=== PATIENT | male | born 1965 | race African-American/Black ===

== ENCOUNTER 2017-02-09 01:38 | Emergency (ER) | payer SELFPAY ==
[2014-03-13 02:07] VITALS: BMI 22.0
[~2017-02-09 01:38] MED LIST: CARDIZEM CD180 MG PO; DILANTIN100 MG PO
[2017-02-09 02:52] LABS: APPEARANCE CLEAR (CLEAR); COLOR YELLOW (YELLOW); GLUCOSE NEGATIVE (NEGATIVE); KETONE NEGATIVE (NEGATIVE); LEUKOCYTE ESTERASE NEGATIVE (NEGATIVE); NITRITE NEGATIVE (NEGATIVE); PROTEIN NEGATIVE (NEGATIVE); SPECIFIC GRAVITY 1.005 (1.005-1.020)
[2017-02-09 02:53] LABS: BILIRUBIN NEGATIVE (NEGATIVE); UROBILINOGEN NORMAL (NORMAL)
[2017-02-09 03:00] LABS: UDS - AMPHET NEGATIVE QUAL (NEGATIVE); UDS - BARB NEGATIVE QUAL (NEGATIVE); UDS - BENZO NEGATIVE QUAL (NEGATIVE); UDS - COCAINE NEGATIVE QUAL (NEGATIVE); UDS - METH NEGATIVE QUAL (NEGATIVE); UDS - OPIATE NEGATIVE QUAL (NEGATIVE); UDS - PCP NEGATIVE QUAL (NEGATIVE); UDS - THC NEGATIVE QUAL (NEGATIVE)
== END 2017-02-09 03:40 | disposition home or self-care (01) ==
LOC: D.ER 01:38
PROVIDERS: Family Medicine
DX: M51.36 Other intervertebral disc degeneration, lumbar region (principal); M54.5 Low back pain; M54.30 Sciatica, unspecified side; F17.200 Nicotine dependence, unspecified, uncomplicated

== ENCOUNTER 2017-02-11 04:39 | Emergency (ER) | payer SELFPAY ==
[2014-03-13 02:07] VITALS: BMI 22.0
== END 2017-02-11 05:23 | disposition home or self-care (01) ==
LOC: D.ER 04:39
DX: M54.5 Low back pain (principal); M51.36 Other intervertebral disc degeneration, lumbar region

== ENCOUNTER 2017-02-17 03:32 | Emergency (ER) | payer SELFPAY ==
[2014-03-13 02:07] VITALS: BMI 22.0
[2017-02-17 05:02] LABS: BASOPHILS 0.1 % (0-2); EOSINOPHILS 0 % (0-7); HEMATOCRIT 35.2 % (42.0-54.0); HEMOGLOBIN 11.2 g/dL (13.5-17.5); IMMATURE GRANULOCYTES 0.1 % (0-5); LYMPHOCYTES 3.3 % (15-50); MCH 29.2 pg (26.0-34.0); MCHC 31.8 g/dL (31.0-37.0); MCV 91.9 fL (80.0-100.0); MEAN PLATELET VOLUME 9.5 fL (7.4-10.4); MONOCYTES 2.5 % (2-11); RBC 3.83 10x6/uL (4.20-6.10); RDW 13.1 % (11.5-14.5); WBC 8.4 10x3/uL (4.8-10.8)
[2017-02-17 05:05] LABS: PLATELET COUNT 159 10x3/uL (130-400)
[2017-02-17 05:17] LABS: ALBUMIN 3.8 g/dL (3.4-5.0); ALKALINE PHOSPHATASE 57 U/L (46-116); ALT (SGPT) 27 U/L (10-68); AMYLASE - SERUM 81 U/L (25-115); CALC OSMOLALITY 279 mosm/kg (275-300); CALCIUM 8.1 mg/dL (8.5-10.1); CARBON DIOXIDE 26.3 mmol/L (21.0-32.0); CHLORIDE - SERUM 102 mmol/L (98-107); CREATININE - SERUM 0.8 mg/dL (0.6-1.3); GLUCOSE 96 mg/dL (74-106); LIPASE 154 U/L (73-393); POTASSIUM - SERUM 3.9 mmol/L (3.5-5.1); PROTEIN - SERUM 8.5 g/dL (6.4-8.2); SODIUM 141 mmol/L (136-145); UREA NITROGEN 9 mg/dL (7-18); eGFR NON AFRICAN AMERICAN > 90 mL/min (90-120)
[2017-02-17 08:09] LABS: UDS - AMPHET NEGATIVE QUAL (NEGATIVE); UDS - BARB NEGATIVE QUAL (NEGATIVE); UDS - BENZO NEGATIVE QUAL (NEGATIVE); UDS - COCAINE NEGATIVE QUAL (NEGATIVE); UDS - METH NEGATIVE QUAL (NEGATIVE); UDS - OPIATE NEGATIVE QUAL (NEGATIVE); UDS - PCP NEGATIVE QUAL (NEGATIVE); UDS - THC NEGATIVE QUAL (NEGATIVE)
[2017-02-17 08:11] LABS: APPEARANCE CLEAR (CLEAR); BILIRUBIN NEGATIVE (NEGATIVE); COLOR YELLOW (YELLOW); GLUCOSE NEGATIVE (NEGATIVE); KETONE MODERATE mg/dL (NEGATIVE); LEUKOCYTE ESTERASE NEGATIVE (NEGATIVE); NITRITE NEGATIVE (NEGATIVE); PROTEIN NEGATIVE (NEGATIVE); SPECIFIC GRAVITY 1.015 (1.005-1.020); UROBILINOGEN NORMAL (NORMAL)
== END 2017-02-17 18:00 | disposition home or self-care (01) ==
LOC: D.ER 03:32
PROVIDERS: Family Medicine
DX: F10.129 Alcohol abuse with intoxication, unspecified (principal); M54.9 Dorsalgia, unspecified; G89.29 Other chronic pain

== ENCOUNTER 2017-06-17 14:35 | Emergency (ER) | payer SELFPAY ==
[2014-03-13 02:07] VITALS: BMI 22.0
[2017-06-17 16:39] LABS: APPEARANCE CLEAR (CLEAR); BILIRUBIN NEGATIVE (NEGATIVE); COLOR STRAW (YELLOW); GLUCOSE NEGATIVE (NEGATIVE); KETONE NEGATIVE (NEGATIVE); NITRITE NEGATIVE (NEGATIVE); PROTEIN NEGATIVE (NEGATIVE); UROBILINOGEN NORMAL (NORMAL)
[2017-06-17 16:45] LABS: UDS - AMPHET NEGATIVE QUAL (NEGATIVE); UDS - BARB NEGATIVE QUAL (NEGATIVE); UDS - BENZO NEGATIVE QUAL (NEGATIVE); UDS - COCAINE NEGATIVE QUAL (NEGATIVE); UDS - OPIATE NEGATIVE QUAL (NEGATIVE); UDS - PCP NEGATIVE QUAL (NEGATIVE); UDS - THC POSITIVE QUAL (NEGATIVE)
== END 2017-06-17 17:35 | disposition home or self-care (01) ==
LOC: D.ER 14:35
PROVIDERS: Nurse Practitioner Family
DX: M54.6 Pain in thoracic spine (principal); M62.830 Muscle spasm of back; M48.54XD Collapsed vertebra, not elsewhere classified, thoracic region, subsequent encounter for fracture with routine healing

== ENCOUNTER 2017-08-14 19:30 | Emergency (ER) | payer MEDICAID ==
[2014-03-13 02:07] VITALS: BMI 22.0
== END 2017-08-14 20:03 | disposition home or self-care (01) ==
LOC: D.ER 19:30
DX: M54.6 Pain in thoracic spine (principal); M62.830 Muscle spasm of back

== ENCOUNTER 2017-09-19 22:25 | Inpatient (IN) | payer OTHER ==
[~2017-09-19] VITALS: Ht 165.1 cm; Wt 56.4 kg
[2017-09-19 23:38] LABS: BASOPHILS 0.2 % (0-2); EOSINOPHILS 0.1 % (0-7); HEMATOCRIT 36.2 % (42.0-54.0); HEMOGLOBIN 11.2 g/dL (13.5-17.5); IMMATURE GRANULOCYTES 1.2 % (0-5); LYMPHOCYTES 13.1 % (15-50); MCH 28.8 pg (26.0-34.0); MCHC 30.9 g/dL (31.0-37.0); MCV 93.1 fL (80.0-100.0); MEAN PLATELET VOLUME 10.5 fL (7.4-10.4); MONOCYTES 9.2 % (2-11); NEUTROPHILS 76.2 % (40-80); PLATELET COUNT 169 10x3/uL (130-400); RBC 3.89 10x6/uL (4.20-6.10); RDW 14.6 % (11.5-14.5); WBC 9.2 10x3/uL (4.8-10.8)
[2017-09-19 23:39] LABS: APPEARANCE CLEAR (CLEAR); BILIRUBIN NEGATIVE (NEGATIVE); COLOR YELLOW (YELLOW); GLUCOSE NEGATIVE (NEGATIVE); KETONE NEGATIVE (NEGATIVE); NITRITE NEGATIVE (NEGATIVE); PROTEIN NEGATIVE (NEGATIVE); UROBILINOGEN NORMAL (NORMAL)
[2017-09-19 23:45] LABS: UDS - AMPHET NEGATIVE QUAL (NEGATIVE); UDS - BARB NEGATIVE QUAL (NEGATIVE); UDS - BENZO NEGATIVE QUAL (NEGATIVE); UDS - COCAINE NEGATIVE QUAL (NEGATIVE); UDS - OPIATE NEGATIVE QUAL (NEGATIVE); UDS - PCP NEGATIVE QUAL (NEGATIVE); UDS - THC NEGATIVE QUAL (NEGATIVE)
[2017-09-19 23:56] LABS: ALBUMIN 3.7 g/dL (3.4-5.0); ALKALINE PHOSPHATASE 84 U/L (46-116); ALT (SGPT) 24 U/L (10-68); BILIRUBIN - TOTAL 0.35 mg/dL (0.2-1.3); CALC OSMOLALITY 274 mosm/kg (275-300); CALCIUM 8.2 mg/dL (8.5-10.1); CARBON DIOXIDE 14.2 mmol/L (21.0-32.0); CHLORIDE - SERUM 98 mmol/L (98-107); CREATININE - SERUM 1.3 mg/dL (0.6-1.3); GLUCOSE 182 mg/dL (74-106); POTASSIUM - SERUM 3.2 mmol/L (3.5-5.1); PROTEIN - SERUM 9.1 g/dL (6.4-8.2); SODIUM 136 mmol/L (136-145); UREA NITROGEN 6 mg/dL (7-18); eGFR NON AFRICAN AMERICAN 61 mL/min (90-120)
[2017-09-20] VITALS (16 sets, daily range): BP systolic 103–142; BP diastolic 71–93; Ht 165.1 cm; Wt 56.4 kg
[2017-09-20 00:06] LABS: CKMB 1.3 U/L (0.0-3.6); CREATINE KINASE 408 UL (21-232); MAGNESIUM - SERUM 1.7 mg/dL (1.8-2.4)
[2017-09-20 00:09] LABS: TROPONIN-I < 0.017 ng/mL (0.000-0.060)
[2017-09-20 07:37] LABS: CALCIUM 8.5 mg/dL (8.5-10.1); CHLORIDE - SERUM 98 mmol/L (98-107); CKMB 2.7 U/L (0.0-3.6); MAGNESIUM - SERUM 1.8 mg/dL (1.8-2.4); POTASSIUM - SERUM 3.4 mmol/L (3.5-5.1); SODIUM 135 mmol/L (136-145)
[2017-09-20 07:39] LABS: CALC OSMOLALITY 266 mosm/kg (275-300); CARBON DIOXIDE 25.3 mmol/L (21.0-32.0); CREATINE KINASE 1196 UL (21-232); CREATININE - SERUM 0.9 mg/dL (0.6-1.3); GLUCOSE 105 mg/dL (74-106); UREA NITROGEN 4 mg/dL (7-18); eGFR NON AFRICAN AMERICAN > 90 mL/min (90-120)
[2017-09-20 07:52] LABS: BASOPHILS 0.1 % (0-2); EOSINOPHILS 0 % (0-7); HEMATOCRIT 34.8 % (42.0-54.0); IMMATURE GRANULOCYTES 0.3 % (0-5); LYMPHOCYTES 5.1 % (15-50); MCH 28.2 pg (26.0-34.0); MCHC 31.6 g/dL (31.0-37.0); MEAN PLATELET VOLUME 11.9 fL (7.4-10.4); MONOCYTES 8.7 % (2-11); NEUTROPHILS 85.8 % (40-80); RDW 14.5 % (11.5-14.5)
[2017-09-20 08:01] LABS: MCV 89.2 fL (80.0-100.0); PLATELET COUNT 106 10x3/uL (130-400)
[2017-09-20 12:16] LABS: CKMB 2.2 U/L (0.0-3.6); TROPONIN-I 0.026 ng/mL (0.000-0.060)
[2017-09-20 12:18] LABS: CREATINE KINASE 1450 UL (21-232)
[2017-09-20 13:21] LABS: T4 THYROXIN - FREE 0.75 ng/dL (0.76-1.46); THYROID STIMULATING HORMONE 0.12 uIU/mL (0.36-3.74)
[2017-09-20 18:02] LABS: CKMB 1.6 U/L (0.0-3.6); TROPONIN-I < 0.017 ng/mL (0.000-0.060)
[2017-09-20 18:04] LABS: CREATINE KINASE 2333 UL (21-232)
[2017-09-20] MEDS ORDERED: TYLENOL W/CODEI1 TAB PO (21:30)
[2017-09-20] MEDS ORDERED: CYCLOBENZAPRINE10 MG PO (21:33)
[2017-09-20] MEDS ORDERED: ROBAXIN500 MG PO (21:36)
[2017-09-21 03:00] VITALS: BP 124/94
[2017-09-21 07:00] VITALS: BP 129/99
[2017-09-21 07:06] LABS: BASOPHILS 0.1 % (0-2); EOSINOPHILS 0.6 % (0-7); HEMOGLOBIN 11.3 g/dL (13.5-17.5); IMMATURE GRANULOCYTES 0.4 % (0-5); LYMPHOCYTES 15.6 % (15-50); MCH 28.5 pg (26.0-34.0); MCHC 31.4 g/dL (31.0-37.0); MCV 90.7 fL (80.0-100.0); MEAN PLATELET VOLUME 11.1 fL (7.4-10.4); MONOCYTES 9.1 % (2-11); NEUTROPHILS 74.2 % (40-80); RBC 3.97 10x6/uL (4.20-6.10); RDW 14.4 % (11.5-14.5)
[2017-09-21 07:09] LABS: PLATELET COUNT 138 10x3/uL (130-400); WBC 7.3 10x3/uL (4.8-10.8)
[2017-09-21 07:20] LABS: CALC OSMOLALITY 264 mosm/kg (275-300); CALCIUM 8.7 mg/dL (8.5-10.1); CARBON DIOXIDE 26.1 mmol/L (21.0-32.0); CHLORIDE - SERUM 97 mmol/L (98-107); GLUCOSE 137 mg/dL (74-106); SODIUM 133 mmol/L (136-145); UREA NITROGEN 3 mg/dL (7-18); eGFR NON AFRICAN AMERICAN 83 mL/min (90-120)
[2017-09-21 11:00] VITALS: BP 116/81
[2017-09-21 15:00] VITALS: BP 99/84
[2017-09-21 18:41] LABS: T4 THYROXIN - FREE 0.94 ng/dL (0.76-1.46); THYROID STIMULATING HORMONE 0.59 uIU/mL (0.36-3.74)
[2017-09-22] VITALS: BP 126/85
[2017-09-22 04:00] VITALS: BP 120/87
[2017-09-22 07:58] VITALS: BP 115/78
[2017-09-22 11:34] VITALS: BP 129/80
[2017-09-22 16:00] LABS: ANION GAP 10.8 mmol/L (8-16); CALCIUM 9.5 mg/dL (8.5-10.1); CARBON DIOXIDE 28.5 mmol/L (21.0-32.0); CREATININE - SERUM 1.1 mg/dL (0.6-1.3); MAGNESIUM - SERUM 1.6 mg/dL (1.8-2.4); POTASSIUM - SERUM 3.3 mmol/L (3.5-5.1)
[2017-09-22 16:37] VITALS: BP 124/82
[2017-09-22 20:09] VITALS: BP 120/84
[2017-09-23 05:21] VITALS: BP 122/79
[2017-09-23 06:51] LABS: CALC OSMOLALITY 268 mosm/kg (275-300); CARBON DIOXIDE 25.5 mmol/L (21.0-32.0); CHLORIDE - SERUM 99 mmol/L (98-107); GLUCOSE 100 mg/dL (74-106); MAGNESIUM - SERUM 1.7 mg/dL (1.8-2.4); SODIUM 135 mmol/L (136-145); UREA NITROGEN 9 mg/dL (7-18); eGFR NON AFRICAN AMERICAN 83 mL/min (90-120)
[2017-09-23 08:45] VITALS: BP 118/58
[2017-09-23] MEDS ORDERED: BETAPACE 80 MG80 MG PO (09:58)
== END 2017-09-23 13:22 | disposition home or self-care (01) | DRG 308 ==
LOC: D.ER 22:25 → D.M2 09-20 04:34 → D.ICU 09-20 04:34 → D.M2 09-21 19:36
PROVIDERS: Family Medicine; Internal Medicine Nephrology
DX: I48.91 Unspecified atrial fibrillation (principal); J18.9 Pneumonia, unspecified organism; J98.11 Atelectasis; I10 Essential (primary) hypertension; G40.909 Epilepsy, unspecified, not intractable, without status epilepticus; D64.9 Anemia, unspecified; G89.29 Other chronic pain; M54.9 Dorsalgia, unspecified; I08.1 Rheumatic disorders of both mitral and tricuspid valves; M41.84 Other forms of scoliosis, thoracic region

== ENCOUNTER 2018-02-27 12:16 | Emergency (ER) | payer MEDICAID ==
[~2018-02-27] VITALS: Ht 165.1 cm; Wt 56.8 kg
[~2018-02-27 12:16] MED LIST changes: +BETAPACE 80 MG80 MG PO; +CYCLOBENZAPRINE10 MG PO; +ROBAXIN500 MG PO; +TYLENOL W/CODEI1 TAB PO
[2018-02-27 12:21] VITALS: Ht 165.1 cm; Wt 56.8 kg
[2018-02-27 13:10] LABS: BASOPHILS 0.3 % (0-2); EOSINOPHILS 0.5 % (0-7); HEMATOCRIT 34.9 % (42.0-54.0); HEMOGLOBIN 11.1 g/dL (13.5-17.5); IMMATURE GRANULOCYTES 0.3 % (0-5); MCH 28.5 pg (26.0-34.0); MCHC 31.8 g/dL (31.0-37.0); MCV 89.5 fL (80.0-100.0); MEAN PLATELET VOLUME 10.1 fL (7.4-10.4); MONOCYTES 10.8 % (2-11); NEUTROPHILS 73.1 % (40-80); PLATELET COUNT 152 10x3/uL (130-400); RDW 13.9 % (11.5-14.5)
[2018-02-27 13:44] LABS: CREATINE KINASE 305 UL (21-232); TROPONIN-I < 0.017 ng/mL (0.000-0.060)
[2018-02-27 13:55] LABS: CKMB 0.9 U/L (0.0-3.6)
[2018-02-27] MEDS ORDERED: ULTRACET TABLET1 TAB PO (14:18)
[2018-02-27 14:51] VITALS: BP 1368/89
== END 2018-02-27 14:53 | disposition home or self-care (01) ==
LOC: D.ER 12:16
PROVIDERS: Emergency Medicine
DX: R07.9 Chest pain, unspecified (principal); D64.9 Anemia, unspecified; G40.909 Epilepsy, unspecified, not intractable, without status epilepticus; I10 Essential (primary) hypertension

== ENCOUNTER 2018-04-14 22:35 | Emergency (ER) | payer MEDICAID ==
[~2018-04-14] VITALS: Ht 165.1 cm; Wt 56.4 kg
[~2018-04-14 22:35] MED LIST changes: +ULTRACET TABLET1 TAB PO
[2018-04-14 22:36] VITALS: Ht 165.1 cm; Wt 56.4 kg
[2018-04-14 23:27] LABS: BASOPHILS 0.6 % (0-2); EOSINOPHILS 0.6 % (0-7); HEMATOCRIT 35.6 % (42.0-54.0); HEMOGLOBIN 11.3 g/dL (13.5-17.5); IMMATURE GRANULOCYTES 0.2 % (0-5); LYMPHOCYTES 22.8 % (15-50); MCH 28.8 pg (26.0-34.0); MCHC 31.7 g/dL (31.0-37.0); MCV 90.6 fL (80.0-100.0); MEAN PLATELET VOLUME 10.1 fL (7.4-10.4); NEUTROPHILS 69.8 % (40-80); RBC 3.93 10x6/uL (4.20-6.10); RDW 13.6 % (11.5-14.5); WBC 5.3 10x3/uL (4.8-10.8)
[2018-04-14 23:33] LABS: PLATELET COUNT 234 10x3/uL (130-400)
[2018-04-14 23:39] LABS: APTT 29.4 SECONDS (22.8-39.4); INR 1.03 (0.85-1.17); PROTIME 13.1 SECONDS (11.6-15.0)
[2018-04-14 23:40] LABS: ALBUMIN 3.5 g/dL (3.4-5.0); ALKALINE PHOSPHATASE 64 U/L (46-116); ALT (SGPT) 16 U/L (10-68); BILIRUBIN - TOTAL 0.33 mg/dL (0.2-1.3); CALC OSMOLALITY 286 mosm/kg (275-300); CALCIUM 8.3 mg/dL (8.5-10.1); CARBON DIOXIDE 26.8 mmol/L (21.0-32.0); CHLORIDE - SERUM 108 mmol/L (98-107); GLUCOSE 83 mg/dL (74-106); POTASSIUM - SERUM 3.5 mmol/L (3.5-5.1); PROTEIN - SERUM 8.5 g/dL (6.4-8.2); SODIUM 145 mmol/L (136-145); UREA NITROGEN 9 mg/dL (7-18); eGFR NON AFRICAN AMERICAN 83 mL/min (90-120)
[2018-04-14 23:40] LABS: APPEARANCE CLEAR (CLEAR); BILIRUBIN NEGATIVE (NEGATIVE); COLOR YELLOW (YELLOW); GLUCOSE NEGATIVE (NEGATIVE); KETONE NEGATIVE (NEGATIVE); NITRITE NEGATIVE (NEGATIVE); PROTEIN NEGATIVE (NEGATIVE); SPECIFIC GRAVITY 1.015 (1.005-1.020); UROBILINOGEN NORMAL (NORMAL)
[2018-04-14 23:41] LABS: D-DIMER-QUANTITATIVE 0.7 ug/mLFEU (0.20-0.54)
[2018-04-14 23:47] LABS: UDS - AMPHET NEGATIVE QUAL (NEGATIVE); UDS - BARB NEGATIVE QUAL (NEGATIVE); UDS - BENZO NEGATIVE QUAL (NEGATIVE); UDS - COCAINE NEGATIVE QUAL (NEGATIVE); UDS - OPIATE NEGATIVE QUAL (NEGATIVE); UDS - PCP NEGATIVE QUAL (NEGATIVE); UDS - THC NEGATIVE QUAL (NEGATIVE)
[2018-04-14 23:51] LABS: CKMB 0.4 U/L (0.0-3.6); CREATINE KINASE 224 UL (21-232); MAGNESIUM - SERUM 1.8 mg/dL (1.8-2.4); PRO BNP 23 pg/mL (0-125)
[2018-04-14 23:55] LABS: TROPONIN-I < 0.017 ng/mL (0.000-0.060)
[2018-04-15 00:30] VITALS: BP 110/74
== END 2018-04-15 00:30 | disposition home or self-care (01) ==
LOC: D.ER 22:35
PROVIDERS: Family Medicine
DX: R07.9 Chest pain, unspecified (principal); G40.909 Epilepsy, unspecified, not intractable, without status epilepticus; I10 Essential (primary) hypertension; I48.91 Unspecified atrial fibrillation; R00.0 Tachycardia, unspecified